=== PATIENT | female | born 1950 | race Caucasian/White ===

== ENCOUNTER 2018-09-18 00:09 | Inpatient (IN) | payer MEDICARE, OTHER ==
[~2018-09-18] VITALS: Ht 152.4 cm; Wt 146.9 kg
[2018-09-18] VITALS (20 sets, daily range): BP systolic 131–158; BP diastolic 59–70; PULSE 62–84; RESP 15–22; Ht 152.4 cm; Wt 146.9 kg
[~2018-09-18 00:09] MED LIST: CEFE1FRO IV
[2018-09-18] MEDS ORDERED: SOD CHLORIDE 0.9% 1,000 ML IV STA (00:21)
[2018-09-18] MEDS ORDERED: ONDANSETRON 4 MG INJ IV PRN ×2 (02:00→06:30)
[2018-09-18] MEDS ORDERED: ACETAMINOPHEN 325 MG TAB PO PRN (02:00)
--- NOTE | 2018-09-18 02:04 | ERD ---
ER Documentation Chief Complaint Chief Complaint VAGINAL BLEEDING HPI This is a 60-year-old who is trach to vent due to COPD who was sent in by residential, who is a patient of Dr. marshall, for vaginal bleeding that started today. Patient is awake alert but did not know she had any vaginal bleeding she has no pain. Reviewing of her old records shows her baseline hemoglobin is 10.9. Denies any vomiting or diarrhea ROS All systems reviewed and are negative except as per history of present illness. Allergies Allergies: Coded Allergies: codeine (Verified Adverse Reaction, Mild, vomiting, 09/18/18) PMhx/Soc History of Surgery: Yes (TRACHEOSTOMY ) Anesthesia Reaction: No Hx Neurological Disorder: No Hx Respiratory Disorders: Yes (COPD ) Hx Cardiac Disorders: Yes (HTN ) Hx Psychiatric Problems: No Hx Miscellaneous Medical Probl: Yes (CKD ) Hx Substance Use: No Hx Tobacco Use: No Smoking Status: Never smoker FmHx Family History: No coronary disease Physical Exam Vitals Vital Signs Date Temp Pulse Resp B/P (MAP) Pulse Ox O2 O2 Flow FiO2 Time Delivery Rate 09/18/18 70 21 100 30 01:34 09/18/18 74 20 100 40 00:16 09/18/18 99.7 77 22 155/64 100 00:15 (94) Physical Exam Const: Well-developed, well-nourished Head: Atraumatic, normocephalic Eyes: Normal Conjunctiva, PERRLA, EOMI, normal sclera, no nystagmus ENT: Normal External Ears, Nose and Mouth, moist mucus membranes. Neck: Full range of motion. No meningismus, no lymphadenopathy, tracheostomy site intact. Resp: Clear to auscultation bilaterally, no wheezing, rhonchi, rales Cardio: Regular rate and rhythm, no murmurs, S1 S2 present Abd: Soft, non tender x 4, non distended. Normal bowel sounds, no guarding or rebound, no pulsitile abdominal masses or bruits, diaper with some dark blood Skin: No petechiae or rashes, no ecchymosis , no maculopapular rash Back: No midline or flank tenderness Ext: No cyanosis, or edema, FROM x 4, normal inspection, neurovascularly intact x 4 Neur: Awake and alert, STR 5/5 x 4, sensation intact x 4, no focal findings, cerebellum intact Psych: Normal Mood and Affect Result Diagram: 09/18/1810209/18/18 0103 Results 24 hrs Laboratory Tests Test 09/18/18 01:03 White Blood Count 6.5 10^3/ul Red Blood Count 3.48 10^6/ul Hemoglobin 10.6 g/dl Hematocrit 33.5 % Mean Corpuscular Volume 96.3 fl Mean Corpuscular Hemoglobin 30.5 pg Mean Corpuscular Hemoglobin Concent 31.6 g/dl Red Cell Distribution Width 17.3 % Platelet Count 261 10^3/UL Mean Platelet Volume 9.3 fl Immature Granulocytes % 1.400 % Neutrophils % 64.3 % Lymphocytes % 18.3 % Monocytes % 12.7 % Eosinophils % 2.4 % Basophils % 0.9 % Nucleated Red Blood Cells % 0.0 /100WBC Immature Granulocytes # 0.090 10^3/ul Neutrophils # 4.2 10^3/ul Lymphocytes # 1.2 10^3/ul Monocytes # 0.8 10^3/ul Eosinophils # 0.2 10^3/ul Basophils # 0.1 10^3/ul Nucleated Red Blood Cells # 0.0 10^3/ul Prothrombin Time 13.8 Sec Prothrombin Time Ratio 1.1 INR International Normalized Ratio 1.05 Activated Partial Thromboplast Time 29.6 Sec Sodium Level 144 mmol/L Potassium Level 3.4 mmol/L Chloride Level 107 mmol/L Carbon Dioxide Level 25 mmol/L Anion Gap 12 Blood Urea Nitrogen 29 mg/dl Creatinine 1.84 mg/dl Est Glomerular Filtrat Rate mL/min 27 mL/min Glucose Level 157 mg/dl Calcium Level 9.5 mg/dl Total Bilirubin 0.3 mg/dl Direct Bilirubin 0.00 mg/dl Indirect Bilirubin 0.3 mg/dl Aspartate Amino Transf (AST/SGOT) 26 IU/L Alanine Aminotransferase (ALT/SGPT) 16 IU/L Alkaline Phosphatase 85 IU/L Total Protein 7.2 g/dl Albumin 3.7 g/dl Globulin 3.50 g/dl Albumin/Globulin Ratio 1.05 Current Medications Medications Dose Sig/Al Start Time Status Last (Trade) Ordered Route PRN Stop Time Admin Dose Reason Admin Sodium 1,000 ml @ Q1H STAT 09/18/18 DC 09/18/18 Chloride 1,000 mls/hr IV 00:21 00:39 09/18/18 01:20 Ondansetron 4 mg ER BRIDGE 09/18/18 HCl (Zofran PRN IV 02:00 Inj) NAUSEA/VOMITI 09/19/18 01:59 NG 650 mg ER BRIDGE 09/18/18 Acetaminophen PRN PO 02:00 (Tylenol .MILD PAIN 09/19/18 01:59 Tab) 1-3 OR TEMP Procedures/MDM Review of the armorer technician sonogram shows limited study due to body habitus but the endometrial stripe does not look thickened. Patient's hemoglobin is 10.6 which is stable. I called and discussed this with Dr. Walker who prefers the patient be admitted for inpatient work-up because outpatient will be difficult due to her trach to vent status Departure Diagnosis: Primary Impression: Vaginal bleeding Condition: Stable ALIDA KEITH DO Sep 18, 2018 02:04
[2018-09-18] MEDS ORDERED: AMLO2.5T78 G-TUBE (04:26)
[2018-09-18] MEDS ORDERED: DIPH12.59 G-TUBE (04:28)
[2018-09-18] MEDS ORDERED: EPO2ESRD SC (04:38)
[2018-09-18] MEDS ORDERED: FURO40SO4 IV* (04:40)
[2018-09-18] MEDS ORDERED: HYDR-3670 IV* (04:42)
[2018-09-18] MEDS ORDERED: METO-448 PO (04:46)
[2018-09-18] MEDS ORDERED: METR500T PO (04:55)
[2018-09-18] MEDS ORDERED: NOVO3I SC (04:56)
[2018-09-18] MEDS ORDERED: ONDA4SOL PO (04:57)
[2018-09-18] MEDS ORDERED: POTA20LI15 PO (04:58)
[2018-09-18] MEDS ORDERED: TRAZ300T15 PO (05:01)
[2018-09-18] MEDS ORDERED: ACET-2158 GTB (05:01)
[2018-09-18] MEDS ORDERED: PENDING SANTYL ORDER FOR WOUND CARE XX PRN (05:30)
[2018-09-18] MEDS ORDERED: ACET250T22 G-TUBE (05:30)
[2018-09-18] MEDS ORDERED: ONDANSETRON (2 MG/2.5 ML PO SYG) PO PRN (06:00)
[2018-09-18] MEDS ORDERED: hydrALAzine 20 MG INJ IV PRN (06:00)
[2018-09-18] MEDS ORDERED: DEXTROSE 50% 50 ML SYRINGE IV PRN ×2 (06:30)
[2018-09-18] MEDS ORDERED: GLUCAGON 1 MG INJ IM PRN (06:30)
[2018-09-18] MEDS ORDERED: GLUCOSE GEL 15 GRAM TUBE PO PRN ×2 (06:30)
[2018-09-18] MEDS ORDERED: GLUCOSE GEL 15 GRAM TUBE BUCCAL PRN (06:30)
[2018-09-18] MEDS: ACCU-CHEK XX SCH ×4 (07:25→20:36)
[2018-09-18] MEDS: INSULIN ASPART [NOVOLOG] 3 ML PEN SC SCH ×4 (07:55→20:35)
[2018-09-18] MEDS ORDERED: EPOETIN 2000 UNITS/1 ML INJ (ESRD) SC SCH (09:00)
[2018-09-18] MEDS: FUROSEMIDE 40 MG/4 ML CUP GTB SCH (09:13)
[2018-09-18] MEDS: ACETAZOLAMIDE 250 MG TAB GTB SCH ×2 (09:13→20:34)
[2018-09-18] MEDS: POTASSIUM CHLORIDE 20 MEQ POWDER FOR ORAL SOLN PO SCH (09:13)
[2018-09-18] MEDS: METOPROLOL 25 MG TAB PO SCH ×2 (09:14→20:35)
[2018-09-18] MEDS: AMLODIPINE 5 MG TAB GTB SCH ×2 (09:14→20:34)
[2018-09-18] MEDS: NYSTATIN 30 GM POWDER BTL TOP SCH ×2 (09:14→20:36)
[2018-09-18] MEDS: metroNIDAZOLE 500 MG TAB GTB SCH ×3 (09:24→21:41)
[2018-09-18] MEDS: CEFEPIME 1GM/50 ML IVPB SCH (09:24)
[2018-09-18] MEDS: POTASSIUM CHLORIDE 100 ML IVPB SCH ×2 (11:01→13:33)
--- NOTE | 2018-09-18 12:37 | QN ---
Documentation Comment PT SEEN and examined GERARDO PAVON MD Sep 18, 2018 12:37
--- NOTE | 2018-09-18 13:29 | CONS ---
Assessment/Plan Assessment/Plan Assessment/Plan (Daily) Morbidly obese patient BMI 64 with postmenopausal bleeding x1 day Please rule out UTI/ recommend urine analysis and urine culture to be done Need to establish the source of the bleeding whether vaginal or from bladder Patient's pelvic ultrasound with an endometrial lining of 8 mm (increased for a postmenopausal patient) Given this patient's comorbid conditions, she is not a surgical candidate for any invasive interventions at this time At this point an endometrial biopsy should be a consideration if the vaginal bleeding persist to rule out endometrial carcinoma The TEXTILE CONVERSION MANAGER service strongly believes that this patient would benefit from transferring to a tertiary care center which they are better equipped to care for this patient given her comorbid conditions. They would have adequate instrumentation for an endometrial biopsy and further management Additionally a TEXTILE CONVERSION MANAGER oncologist will be available at a tertiary care center Consultation Date/Type/Reason Admit Date/Time Sep 18, 2018 at 02:01 Date of Consultation: Sep 18, 2018 Type of Consult Gynecology Reason for Consultation Postmenopausal bleeding Date/Time of Note DATE: 09/18/18 TIME: 13:27 Hx of Present Illness 68-year-old morbidly obese BMI 64 [facility] who has chronic trach to vent due to COPD and G-tube was sent to the hospital for evaluation of vaginal bleeding x1 day It is unclear the source of the bleeding whether it is vaginal or bladder Patient does not seem to be well alert or oriented at this time Genitourinary: other (Vaginal bleeding x1 day) Past Medical History Home Meds Reported Medications Acetazolamide* (Acetazolamide*) 250 Mg Tablet, 250 MG G-TUBE Q12, #60 TAB 09/18/18 Acetaminophen (TYLENOL 325 MG TAB) 325 Mg Tab, 325 MG GTB, TAB 09/18/18 Trazodone Hcl* (Trazodone Hcl*) 300 Mg Tablet, 300 MG PO QHS, #30 TAB 09/18/18 Potassium Chloride* (Potassium Chloride*) 20 Meq/15 Ml Liquid, 20 MEQ PO DAILY, ML 09/18/18 Ondansetron Hcl* (Ondansetron Hcl* Liq) 4 Mg/5 Ml Solution, 4 MG PO Q6H PRN for NAUSEA AND/OR VOMITING, ML 09/18/18 Insulin Aspart* (Novolog Insulin Pen*) 100 Unit/Ml Soln, 0 SC .SLIDING SCALE AC, EA 09/18/18 Metronidazole* (Flagyl*) 500 Mg Tablet, 500 MG PO Q8, TAB 09/18/18 Metoprolol Tartrate* (Lopressor*) 25 Mg Tab, 25 MG PO BID, #60 TAB Hold for SBP <110 or HR <60 09/18/18 Hydralazine Hcl* (Hydralazine Hcl*) 10 Mg Tablet, 10 MG IV* Q6H PRN for SBP > 170, #60 TAB 09/18/18 Furosemide* (Lasix* Liq) 40 Mg/4 Ml Solution, 10 MG IV* DAILY, #60 ML 09/18/18 Epoetin Jasmeet (Epogen) 2,000 Units/Ml Soln, 7.15 UNITS SC DAILY for Anemia, VIAL Tuesdays, , Saturdays09/18/18 Cefepime Hcl/Dextrose, Iso-Osm (Cefepime 1 Gm Injection) 1 Gm/50 Ml Froz.piggy, 1 GM IV Q24H for for UTI 09/18/18 Diphenhydramine Hcl* (Diphenhydramine Hcl*) 12.5 Mg/5 Ml Elixir, 25 MG G-TUBE Q8 PRN for ITCHING, ML 09/18/18 Amlodipine Besylate* (Amlodipine Besylate*) 2.5 Mg Tablet, 5 MG G-TUBE Q12, #30 TAB 09/18/18 Medications Current Medications Miscellaneous Information (Pending Santyl Order For Wound Care) This patient garcia... PRN PRN XX WOUND CARE; Start 09/18/18 at 05:30 Acetaminophen (Tylenol Tab) 325 mg Q6 PRN GTB MILD PAIN(1-3) OR TEMP>38C; Start 09/18/18 at 06:00 Acetazolamide (Diamox) 250 mg Q12 GTB Last administered on 09/18/18at 09:13; Admin Dose 250 MG; Start 09/18/18 at 09:00 Amlodipine Besylate (Norvasc) 5 mg Q12 GTB Last administered on 09/18/18at 09:14; Admin Dose 5 MG; Start 09/18/18 at 09:00 Diphenhydramine HCl (Benadryl Liquid Cup) 25 mg Q8 PRN GTB ITCHING; Start 09/18/18 at 06:00 Epoetin Jasmeet (Epogen (Esrd)) 7.15 units DAILY SC ; Start 09/18/18 at 09:00; S tomeka UNV Furosemide (Lasix) 10 mg DAILY GTB Last administered on 09/18/18at 09:13; Admin Dose 10 MG; Start 09/18/18 at 09:00 Metoprolol Tartrate (Lopressor) 25 mg BID PO Last administered on 09/18/18at 09:14; Admin Dose 25 MG; Start 09/18/18 at 09:00 Metronidazole (Flagyl) 500 mg Q8 GTB Last administered on 09/18/18at 09:24; Admin Dose 500 MG; Start 09/18/18 at 09:00 Potassium Chloride (Potassium Chloride Pwd/Soln) 20 meq DAILY PO Last administered on 09/18/18 09:13; Admin Dose 20 MEQ; Start 09/18/18 at 09:00 Trazodone HCl (Desyrel) 300 mg QHS PO ; Start 09/18/18 at 21:00 Insulin Aspart (Novolog Insulin Pen) NOVOLOG *MILD* ALGORITHM WITH MEALS BEDTIME SC Last administered on 09/18/18at 12:02; Admin Dose 1 UNIT; Start 09/18/18 at 07:55 Diagnostic Test (Pha) (Accu-Chek) 1 ea AC MEALS AND BEDTIME XX ; Start 09/18/18 at 07:25 Hydralazine HCl (Apresoline) 10 mg Q6H PRN IV SBP >170; Start 09/18/18 at 06:00 Hydralazine HCl (Apresoline) 100 mg Q8 GTB Last administered on 09/18/18at 06:47 ; Admin Dose 100 MG; Start 09/18/18 at 06:00 Nystatin (Nystatin Powder) 1 applic BID TOP Last administered on 09/18/18at 09:14; Admin Dose 1 APPLIC; Start 09/18/18 at 09:00 Miscellaneous Information 1 ea NOTE XX ; Start 09/18/18 at 06:30 Glucose (Glutose) 15 gm Q15M PRN PO DECREASED GLUCOSE; Start 09/18/18 at 06:30 Glucose (Glutose) 22.5 gm Q15M PRN PO DECREASED GLUCOSE; Start 09/18/18 at 06:30 Dextrose (D50w Syringe) 25 ml Q15M PRN IV DECREASED GLUCOSE; Start 09/18/18 at 06:30 Dextrose (D50w Syringe) 50 ml Q15M PRN IV DECREASED GLUCOSE; Start 09/18/18 at 06:30 Glucagon (Glucagen) 1 mg Q15M PRN IM DECREASED GLUCOSE; Start 09/18/18 at 06:30 Glucose (Glutose) 15 gm Q15M PRN BUCCAL DECREASED GLUCOSE; Start 09/18/18 at 06:30 Ondansetron HCl (Zofran Inj) 4 mg Q6H PRN IV NAUSEA AND/OR VOMITING; Start 09/18/18 at 06:30 Cefepime HCl 50 ml @ 100 mls/hr Q24H IVPB Last administered on 09/18/18at 09:24; Admin Dose 100 MLS/HR; Start 09/18/18 at 09:00 Miscellaneous Information (*Order Clarification Bulletin) EPOGEN ORDER...7.15 UNITS... Q8H XX ; Start 09/18/18 at 07:00 Potassium Chloride 100 ml @ 50 mls/hr Q2H IVPB Last administered on 09/18/18at 11:01; Admin Dose 50 MLS/HR; Start 09/18/18 at 10:30; Stop 09/18/18 at 14:29 Allergies: Coded Allergies: codeine (Verified Adverse Reaction, Mild, vomiting, 09/18/18) Social History Smoking Status: Never smoker Exam/Review of Systems Exam Vitals Vital Signs Date Temp Pulse Resp B/P (MAP) Pulse Ox O2 O2 Flow FiO2 Time Delivery Rate 09/18/18 71 08:41 09/18/18 97.5 18 158/59 98 Mechanical 07:47 (92) Ventilator 09/18/18 30 05:23 Results Result Diagram: 09/18/18 0601 09/18/18 0601 Results 24hrs Laboratory Tests Test 09/18/18 01:00 09/18/18 01:03 09/18/18 06:01 09/18/18 08:00 Blood Gas Blood arterial Specimen Source Arterial Blood 09/18/2018 1:20:1 Date Drawn 5 AM Arterial Blood pH 7.373 (Temp corrected) Arterial Blood 44.4 pCO2 (Temp correct) Arterial Blood 137.9 H pO2 (Temp corrected) Arterial Blood 25.3 HCO3 Arterial Blood -0.2 Base Excess Arterial Blood 98.6 H Oxygen Saturation Sukhdev Test ACCEPTAB Arterial Blood Left Radial Gas Puncture Site Arterial 0.3 Blood Carboxyhemo globin Arterial Blood 0.3 Methemoglobin Blood Gas A-a O2 96.2 H Differential Oxyhemoglobin 98.0 Percent Blood Gas 37.0 Temperature Blood Gas 14.0 Respiration Rate Blood Gas Actual 21 Respiration Rate Blood Gas VENT - AC Modality FiO2 40.0 Blood Gas Tidal 500.0 Volume Blood Gas Low 5.0 PEEP Setting Blood Gas 34.0 Inspiratory Pressure Blood Gas Notified Whom Blood Gas 09/18/2018 1:30:0 Notified Time 2 AM White Blood Count 6.5 6.4 Red Blood Count 3.48 L 3.42 L Hemoglobin 10.6 L 10.4 L Hematocrit 33.5 L 32.9 L Mean Corpuscular 96.3 96.2 Volume Mean Corpuscular 30.5 30.4 Hemoglobin Mean Corpuscular 31.6 L 31.6 L Hemoglobin Concen t Red Cell 17.3 H 17.2 H Distribution Width Platelet Count 261 256 Mean Platelet 9.3 9.7 Volume Immature 1.400 H 1.900 H Granulocytes % Neutrophils % 64.3 60.4 Lymphocytes % 18.3 21.9 Monocytes % 12.7 H 12.9 H Eosinophils % 2.4 2.0 Basophils % 0.9 0.9 Nucleated Red 0.0 0.0 Blood Cells % Immature 0.090 H 0.120 H Granulocytes # Neutrophils # 4.2 3.9 Lymphocytes # 1.2 1.4 Monocytes # 0.8 0.8 Eosinophils # 0.2 0.1 Basophils # 0.1 0.1 Nucleated Red 0.0 0.0 Blood Cells # Prothrombin Time 13.8 Prothrombin Time 1.1 Ratio INR International 1.05 Normalized Ratio Activated 29.6 Partial Thrombopl ast Time Sodium Level 144 143 Potassium Level 3.4 L 3.4 L Chloride Level 107 110 Carbon Dioxide 25 25 Level Anion Gap 12 8 Blood Urea 29 H 29 H Nitrogen Creatinine 1.84 H 1.80 H Est Glomerular 27 L 28 L Filtrat Rate mL/min Glucose Level 157 141 Calcium Level 9.5 9.2 Total Bilirubin 0.3 0.2 Direct Bilirubin 0.00 0.00 Indirect 0.3 0.2 Bilirubin Aspartate Amino 26 27 Transf (AST/SGOT) Alanine 16 16 Aminotransferase (ALT/SGPT) Alkaline 85 81 Phosphatase Total Protein 7.2 7.1 Albumin 3.7 3.4 Globulin 3.50 H 3.70 H Albumin/Globulin 1.05 0.91 Ratio Bedside Glucose 127 Test 09/18/18 11:43 Bedside Glucose 165 Imaging Imaging PROCEDURE: US Non-OB Pelvis. CLINICAL INDICATION: Vaginal bleeding. TECHNIQUE: Multiple sonographic images of the pelvis were obtained utilizing a transabdominal and endovaginal technique. The images were reviewed on a PACS workstation. COMPARISON: None. FINDINGS: The uterus is not well visualized but measures 10.7 x 5.7 x 7.4 cm. The endometrial echo complex measures 8 mm. The ovaries are not visualized. No adnexal masses are noted. There is no evidence of free fluid. IMPRESSION: Grossly normal appearance of the uterus. The ovaries are not visualized. RPTAT: HTAR .Cipriano Stone MD, MD Date Time Electronically viewed and signed by .Cipriano Stone MD, on 09/18/2018 02:58 .R/ CC: ALIDA KEITH DO [id number] Medications Medication Current Medications Miscellaneous Information (Pending [facility] Order For Wound Care) This patient garcia... PRN PRN XX WOUND CARE; Start 09/18/18 at 05:30 Acetaminophen (Tylenol Tab) 325 mg Q6 PRN GTB MILD PAIN(1-3) OR TEMP>38C; Start 09/18/18 at 06:00 Acetazolamide (Diamox) 250 mg Q12 GTB Last administered on 09/18/18at 09:13; Admin Dose 250 MG; Start 09/18/18 at 09:00 Amlodipine Besylate (Norvasc) 5 mg Q12 GTB Last administered on 09/18/18at 09:14; Admin Dose 5 MG; Start 09/18/18 at 09:00 Diphenhydramine HCl (Benadryl Liquid Cup) 25 mg Q8 PRN GTB ITCHING; Start 09/18/18 at 06:00 Epoetin Jasmeet (Epogen (Esrd)) 7.15 units DAILY SC ; Start 09/18/18 at 09:00; Status UNV Furosemide (Lasix) 10 mg DAILY GTB Last administered on 09/18/18at 09:13; Admin Dose 10 MG; Start 09/18/18 at 09:00 Metoprolol Tartrate (Lopressor) 25 mg BID PO Last administered on 09/18/18at 09:14; Admin Dose 25 MG; Start 09/18/18 at 09:00 Metronidazole (Flagyl) 500 mg Q8 GTB Last administered on 09/18/18at 09:24; Admin Dose 500 MG; Start 09/18/18 at 09:00 Potassium Chloride (Potassium Chloride Pwd/Soln) 20 meq DAILY PO Last administered on 09/18/18at 09:13; Admin Dose 20 MEQ; Start 09/18/18 at 09:00 Trazodone HCl (Desyrel) 300 mg QHS PO ; Start 09/18/18 at 21:00 Insulin Aspart (Novolog Insulin Pen) NOVOLOG *MILD* ALGORITHM WITH MEALS BEDTIME SC Last administered on 09/18/18at 12:02; Admin Dose 1 UNIT; Start 09/18/18 at 07:55 Diagnostic Test (Pha) (Accu-Chek) 1 ea AC MEALS AND BEDTIME XX ; Start 09/18/18 at 07:25 Hydralazine HCl (Apresoline) 10 mg Q6H PRN IV SBP >170; Start 09/18/18 at 06:00 Hydralazine HCl (Apresoline) 100 mg Q8 GTB Last administered on 09/18/18at 06:47; Admin Dose 100 MG; Start 09/18/18 at 06:00 Nystatin (Nystatin Powder) 1 applic BID TOP Last administered on 09/18/18at 0 9:14; Admin Dose 1 APPLIC; Start 09/18/18 at 09:00 Miscellaneous Information 1 ea NOTE XX ; Start 09/18/18 at 06:30 Glucose (Glutose) 15 gm Q15M PRN PO DECREASED GLUCOSE; Start 09/18/18 at 06:30 Glucose (Glutose) 22.5 gm Q15M PRN PO DECREASED GLUCOSE; Start 09/18/18 at 06:30 Dextrose (D50w Syringe) 25 ml Q15M PRN IV DECREASED GLUCOSE; Start 09/18/18 at 06:30 Dextrose (D50w Syringe) 50 ml Q15M PRN IV DECREASED GLUCOSE; Start 09/18/18 at 06:30 Glucagon (Glucagen) 1 mg Q15M PRN IM DECREASED GLUCOSE; Start 09/18/18 at 06:30 Glucose (Glutose) 15 gm Q15M PRN BUCCAL DECREASED GLUCOSE; Start 09/18/18 at 06:30 Ondansetron HCl (Zofran Inj) 4 mg Q6H PRN IV NAUSEA AND/OR VOMITING; Start 09/18/18 at 06:30 Cefepime HCl 50 ml @ 100 mls/hr Q24H IVPB Last administered on 09/18/18at 09:24; Admin Dose 100 MLS/HR; Start 09/18/18 at 09:00 Miscellaneous Information (*Order Clarification Bulletin) EPOGEN ORDER...7.15 UNITS... Q8H XX ; Start 09/18/18 at 07:00 Potassium Chloride 100 ml @ 50 mls/hr Q2H IVPB Last administered on 09/18/18at 11:01; Admin Dose 50 MLS/HR; Start 09/18/18 at 10:30; Stop 09/18/18 at 14:29 DAKSHA COLUNGA MD Sep 18, 2018 13:29
--- NOTE | 2018-09-18 13:59 | HP ---
DATE OF ADMISSION: 09/18/2018 REASON FOR ADMISSION: Vaginal bleeding. HISTORY OF PRESENTING ILLNESS: This is a 68-year-old female with past medical history of chronic res piratory failure on a ventilator, history of aspiration pneumonia, COPD, morbid obesity, history of U TI, hypertension, who was admitted at [facility] secondary to ongoing vaginal bleeding. patient was there on . The patient was transferred there. She was thought to have bleeding s econdary to postmenopausal. She had pelvic ultrasound that showed the patient had fibroids. There w as no PREFITTER DOORS service at [facility] and outside PREFITTER DOORS was contacted. After discussion with the case checker, the patient was supposed to go to [facility] , but did not work out. Referral was mad e to transfer to [facility] or [place]. They did not have a bed. Family did not want the tammy ent to come back to [place]. The patient somehow made in [facility]. The patient was noted to have vaginal bleeding and was transferred here for further workup. PAST MEDICAL HISTORY: 1. Chronic respiratory failure, status post tracheostomy. 2. Dysphagia, status post PEG tube. 3. COPD. 4. Morbid obesity. 5. Diabetes. 6. Functional quadriplegia. ALLERGIES: CODEINE. PAST SURGICAL HISTORY: 1. Tracheostomy. 2. G-tube placement. MEDICATIONS TAKING AT [facility]: 1. Amlodipine 5 mg q.12 hours. 2. Benadryl p.r.n. 3. Cefepime for UTI. 4. Epogen Tuesday, and Tuesday. 5. Fluconazole 100. 6. Lasix 20. 7. Hydralazine 10 q.6 p.r.n. systolic blood pressure of 170. 8. Hydralazine 100 q.8 hours. 9. Metoprolol 25 b.i.d. 10. Flagyl q.8 hours for UTI. 11. Zofran. 12. Potassium chloride. 13. Trazodone. 14. Tylenol. FAMILY HISTORY: Noncontributory. REVIEW OF SYSTEMS: The patient says she always short of breath. Currently, denies any chest pain. No nausea, vomiting noted. No hematemesis, no melena; however the patient has vaginal bleeding. PHYSICAL EXAMINATION: VITAL SIGNS: Temperature initially was 99.7, heart rate of 69, respirations 18, blood pressure 155/6 4. GENERAL: The patient is morbidly obese, awake, alert, oriented, able to answer some questions on a v entilator. HEENT: Atraumatic, normocephalic. Eyes: Extraocular movements are intact. NECK: Thick neck. JVD could not be appreciated. LUNGS: With decreased breath sounds bilaterally. ABDOMEN: Soft, nontender. No bowel sounds. EXTREMITIES: A 2+ edema. The patient is able to move all the extremities. SKIN: The patient also has a G-tube in place. Right forearm has superficial ulcer. Back with macul opapular rash. Also noted to have sacral area with some pressure ulcer stage II. The patient's bila teral heels are also red in appearance. LABORATORY DATA: Potassium 3.4, BUN of 29, creatinine 1.84. White count of 6.5, hemoglobin 10.6, pl atelet count 261. ASSESSMENT AND PLAN: This is a 68-year-old female who presented with: 1. The patient has been admitted multiple times for persistent vaginal bleeding. The patient was th ought to have fibroids at an outside hospital. There was no PREFITTER DOORS service. The patient was on progeste rodrick for a little bit. Hemoglobin is 10.4. Currently, no vaginal bleeding appreciated. 2. Right forearm ulcer. 3. Mild low-grade fever. 4. Persistent hypokalemia. 5. History of multiple urinary tract infections on antibiotics. 6. Chronic respiratory failure, status post tracheostomy. 7. Dysphagia, status post G-tube. 8. Hypertension. 9. Morbid obesity. 10. History of chronic kidney disease. PLAN: At this period of time, the patient is admitted to [facility]. The patient's hemoglobin will be mon itored serially. Pelvic ultrasound here shows that uterus is not well visualized. We will hold off any blood thinners. The patient is currently on Epogen. We will replace the potassium. We will andrew l her PREFITTER DOORS consultation. The patient is continued on antibiotics from the [facility]. Rest of the treatment will depend of the patient's hospitalization course. Dictated By: GERARDO TELLO/REJI Conf#: [id number] DID#: [id number] CC: ADAM CARDENAS MD; MICKEY LYONS MD;*EndCC*
--- NOTE | 2018-09-18 15:00 | CONS ---
DATE OF ADMISSION: 09/18/2018 DATE OF CONSULTATION: 09/18/2018 TYPE OF CONSULTATION: Infectious disease. REASON FOR CONSULTATION: Antibiotic management. HISTORY OF PRESENT ILLNESS: Elza Torres is a 68-year-old female who comes to the emergency room wit h vaginal bleeding. She has ventilator dependent respiratory failure, trach to vent due to COPD. He r vaginal bleeding started today. She has no pain. Her baseline hemoglobin is 10.9. PAST SURGICAL HISTORY: Status post tracheostomy. PAST MEDICAL HISTORY: Includes COPD, hypertension and chronic renal disease. SOCIAL HISTORY: She does not smoke, drink or abuse drugs. ALLERGIES: CODEINE. MEDICATIONS: Per chart. REVIEW OF SYSTEMS: Noncontributory. PHYSICAL EXAMINATION: GENERAL: She is a well-developed, well-nourished female who is alert, responsive, in no acute distre ss. VITAL SIGNS: Stable. She is afebrile. SKIN: Without generalized rash. HEENT: Tracheostomy in site intact. NECK: Supple. CHEST: Decreased breath sounds at the bases. HEART: Without murmur or gallop. ABDOMEN: Soft, nontender without organosplenomegaly or masses. EXTREMITIES: Without cyanosis, clubbing or edema. RECTAL AND GENITAL: Deferred. She has with some dark blood. NEUROLOGICAL: No focal neurological abnormalities. HOSPITAL COURSE: Her white count is 6.5, H and H 10.6 and 33.5, platelet count 261,000. Potassium 3 .4, BUN and creatinine is 29/1.84. Her white count is 6.5, has 64% neutrophils. Sonogram shows that the endometrial stripe does not look thickened. The patient was admitted and was seen by Dr. Codey perez. The patient is morbidly obese with a BMI of 64 with postmenopausal bleeding of 1 day. Rule out U TI. I recommend urinalysis and urine culture be done. Need to establish the source of bleeding whet her vaginal or from bladder. Ultrasound is within normal limits endometrial lining of 8 mm increased for postmenopausal patient and endometrial biopsy may be considered by the prototype engineer manager as outpatien t care if the vaginal bleeding persists to rule out endometrial carcinoma. The patient also has G-tu be which I did mentioned previously. She is functionally quadriplegic. We will continue her on this regimen. She currently was placed on Flagyl and cefepime and I am not exactly sure why. I will dis cuss this with Dr. Diaz. Urinalysis is pending. There is no evidence of infection. We will stop her antibiotic therapy. I will dictate my findings to Dr. Diaz and Dr. Cardenas. Dictated By: MICKEY LYONS MD, JD/NTS Conf#: [id number] DID#: [id number] CC: ADAM CARDENAS MD;*End*
[2018-09-18] MEDS: DIPHENHYDRAMINE 2.5 MG/ML 5ML CUP GTB PRN (19:51)
[2018-09-18] MEDS: ACETAMINOPHEN 325 MG TAB GTB PRN (19:52)
[2018-09-18] MEDS: traZODone 100 MG TAB PO SCH (20:33)
[2018-09-19] VITALS (23 sets, daily range): BP systolic 95–137; BP diastolic 50–63; PULSE 61–114; RESP 18–23
[2018-09-19] MEDS: metroNIDAZOLE 500 MG TAB GTB SCH ×2 (05:29→14:13)
[2018-09-19] MEDS: DIPHENHYDRAMINE 2.5 MG/ML 5ML CUP GTB PRN ×2 (05:29→20:28)
[2018-09-19] MEDS: ACETAMINOPHEN 325 MG TAB GTB PRN ×2 (05:30→20:30)
[2018-09-19] MEDS: ACCU-CHEK XX SCH ×4 (07:25→21:00)
[2018-09-19] MEDS: INSULIN ASPART [NOVOLOG] 3 ML PEN SC SCH ×4 (08:04→21:00)
[2018-09-19] MEDS: BALSAM PERU/CASTOR OIL 60 GM TUBE TOP SCH (09:01)
[2018-09-19] MEDS: FUROSEMIDE 40 MG/4 ML CUP GTB SCH (09:01)
[2018-09-19] MEDS: NYSTATIN 30 GM POWDER BTL TOP SCH ×2 (09:01→20:30)
[2018-09-19] MEDS: METOPROLOL 25 MG TAB PO SCH ×2 (09:02→20:30)
[2018-09-19] MEDS: ACETAZOLAMIDE 250 MG TAB GTB SCH ×2 (09:02→20:29)
[2018-09-19] MEDS: AMLODIPINE 5 MG TAB GTB SCH ×2 (09:02→20:30)
[2018-09-19] MEDS: POTASSIUM CHLORIDE 20 MEQ POWDER FOR ORAL SOLN PO SCH (09:02)
[2018-09-19] MEDS: CEFEPIME 1GM/50 ML IVPB SCH (10:12)
[2018-09-19] MEDS ORDERED: POTASSIUM CHLORIDE 100 ML IVPB SCH (10:30)
[2018-09-19] MEDS ORDERED: POTASSIUM CHLORIDE (SR) 20 MEQ TAB PO STA ×2 (11:27→12:11)
--- NOTE | 2018-09-19 11:38 | PN ---
Date/Time of Note Date/Time of Note DATE: 09/19/18 TIME: 11:34 Assessment/Plan VTE Prophylaxis Risk score (from Ns)>0 risk: 6 SCD applied (from Ns): No SCD contraindicated: low risk/ambulating Pharmacological prophylaxis: NA/contraindicated Pharm contraindication: low risk/ambulating Lines/Catheters IV C[facility]ter Type [facility]from [facility] [place] Urinary Cath still in place: No (NO BLEEDING NOTED) Assessment/Plan Assessment/Plan ASSESSMENT AND PLAN: This is a 68-year-old female who presented with: 1. The patient has been admitted multiple times for persistent vaginal bleeding. The patient was thought to have fibroids at an outside hospital. There was no AIRPORT SALES AGENT service. The patient was on progesterone for a little bit. Hemoglobin is 10.4. Currently, no vaginal bleeding appreciated. 2. Right forearm ulcer. 3. Mild low-grade fever. 4. Persistent hypokalemia. 5. History of multiple urinary tract infections on antibiotics. 6. Chronic respiratory failure, status post tracheostomy. 7. Dysphagia, status post G-tube. 8. Hypertension. 9. Morbid obesity. 10. History of chronic kidney disease. plan - will obtain UA to see if has UTI verus bleeding from pelvic source - seen [facility] consult> thickened endometral lining, will need likely endometrial biopsy at [facility] - iv abx per ID - CW Feeding - replete k - GI/DVT prophylaxsis - cw vent management spoke to brother Result Diagram: 09/19/18 0632 09/19/18 0632 Results 24hrs Laboratory Tests Test 09/18/18 11:43 09/18/18 17:58 09/18/18 20:10 09/19/18 06:32 Bedside Glucose 165 159 135 White Blood Count 7.5 Red Blood Count 3.49 L Hemoglobin 10.5 L Hematocrit 33.1 L Mean Corpuscular 94.8 Volume Mean Corpuscular 30.1 Hemoglobin Mean Corpuscular 31.7 L Hemoglobin Concent Red Cell 17.2 H Distribution Width Platelet Count 256 Mean Platelet Volume 9.8 Immature 1.600 H Granulocytes % Neutrophils % 57.6 Lymphocytes % 25.3 Monocytes % 11.8 H Eosinophils % 2.4 Basophils % 1.3 Nucleated Red Blood 0.0 Cells % Immature 0.120 H Granulocytes # Neutrophils # 4.3 Lymphocytes # 1.9 Monocytes # 0.9 Eosinophils # 0.2 Basophils # 0.1 Nucleated Red Blood 0.0 Cells # Sodium Level 141 Potassium Level 3.3 L Chloride Level 111 H Carbon Dioxide Level 21 Anion Gap 9 Blood Urea Nitrogen 29 H Creatinine 1.72 H Est Glomerular 29 L Filtrat Rate mL/min Glucose Level 162 Calcium Level 8.7 Phosphorus Level 2.8 Magnesium Level 2.1 Test 09/19/18 07:58 Bedside Glucose 187 Subjective 24 Hr Interval Summary Free Text/Dictation No vaginal bleeding noted per nursing staff k 3.3 pt was seen by Gynae and ID Exam/Review of Systems Exam Vitals Vital Signs Date Temp Pulse Resp B/P (MAP) Pulse Ox O2 O2 Flow FiO2 Time Delivery Rate 09/19/18 76 08:01 09/19/18 98.4 19 131/59 99 07:45 (83) 09/19/18 30 05:16 09/18/18 Mechanical 15:44 Ventilator Intake and Output 09/18/18 09/18/18 09/19/18 1515:00 23:00 07:00 IntakeIntake Total 150 ml 100 ml OutputOutput Total 1 ml 2 ml BalanceBalance 149 ml 98 ml Exam ENERAL: The patient is morbidly obese, awake, alert, oriented, able to answer some questions on a ventilator. HEENT: Atraumatic, normocephalic. Eyes: Extraocular movements are intact. NECK: Thick neck. JVD could not be appreciated. LUNGS: With decreased breath sounds bilaterally. ABDOMEN: Soft, nontender. No bowel sounds. EXTREMITIES: A 2+ edema. The patient is able to move all the extremities. SKIN: The patient also has a G-tube in place. Right forearm has superficial ulcer. Back with maculopapular rash. Also noted to have sacral area with some pressure ulcer stage II. The patient's bilateral heels are also red in appearance. Results Results 24hrs Laboratory Tests Test 09/18/18 11:43 09/18/18 17:58 09/18/18 20:10 09/19/18 06:32 Bedside Glucose 165 159 135 White Blood Count 7.5 Red Blood Count 3.49 L Hemoglobin 10.5 L Hematocrit 33.1 L Mean Corpuscular 94.8 Volume Mean Corpuscular 30.1 Hemoglobin Mean Corpuscular 31.7 L Hemoglobin Concent Red Cell 17.2 H Distribution Width Platelet Count 256 Mean Platelet Volume 9.8 Immature 1.600 H Granulocytes % Neutrophils % 57.6 Lymphocytes % 25.3 Monocytes % 11.8 H Eosinophils % 2.4 Basophils % 1.3 Nucleated Red Blood 0.0 Cells % Immature 0.120 H Granulocytes # Neutrophils # 4.3 Lymphocytes # 1.9 Monocytes # 0.9 Eosinophils # 0.2 Basophils # 0.1 Nucleated Red Blood 0.0 Cells # Sodium Level 141 Potassium Level 3.3 L Chloride Level 111 H Carbon Dioxide Level 21 Anion Gap 9 Blood Urea Nitrogen 29 H Creatinine 1.72 H Est Glomerular 29 L Filtrat Rate mL/min Glucose Level 162 Calcium Level 8.7 Phosphorus Level 2.8 Magnesium Level 2.1 Test 09/19/18 07:58 Bedside Glucose 187 Medications Medication Current Medications Miscellaneous Information (Pending [facility] Order For Wound Care) This patient garcia... PRN PRN XX WOUND CARE; Start 09/18/18 at 05:30 Acetaminophen (Tylenol Tab) 325 mg Q6 PRN GTB MILD PAIN(1-3) OR TEMP>38C Last administered on 09/19/18 05:30; Admin Dose 325 MG; Start 09/18/18 at 06:00 Acetazolamide (Diamox) 250 mg Q12 GTB Last administered on 09/19/18 09:02; Admin Dose 250 MG; Start 09/18/18 at 09:00 Amlodipine Besylate (Norvasc) 5 mg Q12 GTB Last administered on 09/19/18 09:02; Admin Dose 5 MG; Start 09/18/18 at 09:00 Diphenhydramine HCl (Benadryl Liquid Cup) 25 mg Q8 PRN GTB ITCHING Last admini stered on 09/19/18 05:29; Admin Dose 25 MG; Start 09/18/18 at 06:00 Epoetin Jasmeet (Epogen (Esrd)) 7.15 units DAILY SC ; Start 09/18/18 at 09:00; Status UNV Furosemide (Lasix) 10 mg DAILY GTB Last administered on 09/19/18 09:01; Admin Dose 10 MG; Start 09/18/18 at 09:00 Metoprolol Tartrate (Lopressor) 25 mg BID PO Last administered on 09/19/18 09:02; Admin Dose 25 MG; Start 09/18/18 at 09:00 Metronidazole (Flagyl) 500 mg Q8 GTB Last administered on 09/19/18at 05:29; Admin Dose 500 MG; Start 09/18/18 at 09:00 Potassium Chloride (Potassium Chloride Pwd/Soln) 20 meq DAILY PO Last administered on 09/19/18at 09:02; Admin Dose 20 MEQ; Start 09/18/18 at 09:00 Trazodone HCl (Desyrel) 300 mg QHS PO Last administered on 09/18/18at 20:33; Admin Dose 300 MG; Start 09/18/18 at 21:00 Insulin Aspart (Novolog Insulin Pen) NOVOLOG *MILD* ALGORITHM WITH MEALS BEDTIME SC Last administered on 09/19/18at 08:04; Admin Dose 2 UNIT; Start 09/18/18 at 07:55 Diagnostic Test (Pha) (Accu-Chek) 1 ea AC MEALS AND BEDTIME XX ; Start 09/18/18 at 07:25 Hydralazine HCl (Apresoline) 10 mg Q6H PRN IV SBP >170; Start 09/18/18 at 06:00 Hydralazine HCl (Apresoline) 100 mg Q8 GTB Last administered on 09/19/18at 05 :30; Admin Dose 100 MG; Start 09/18/18 at 06:00 Nystatin (Nystatin Powder) 1 applic BID TOP Last administered on 09/19/18at 09:01; Admin Dose 1 APPLIC; Start 09/18/18 at 09:00 Miscellaneous Information 1 ea NOTE XX ; Start 09/18/18 at 06:30 Glucose (Glutose) 15 gm Q15M PRN PO DECREASED GLUCOSE; Start 09/18/18 at 06:30 Glucose (Glutose) 22.5 gm Q15M PRN PO DECREASED GLUCOSE; Start 09/18/18 at 06: 30 Dextrose (D50w Syringe) 25 ml Q15M PRN IV DECREASED GLUCOSE; Start 09/18/18 at 06:30 Dextrose (D50w Syringe) 50 ml Q15M PRN IV DECREASED GLUCOSE; Start 09/18/18 at 06:30 Glucagon (Glucagen) 1 mg Q15M PRN IM DECREASED GLUCOSE; Start 09/18/18 at 06:30 Glucose (Glutose) 15 gm Q15M PRN BUCCAL DECREASED GLUCOSE; Start 09/18/18 at 06:30 Ondansetron HCl (Zofran Inj) 4 mg Q6H PRN IV NAUSEA AND/OR VOMITING; Start 09/18/18 at 06:30 Cefepime HCl 50 ml @ 100 mls/hr Q24H IVPB Last administered on 09/19/18at 10:12; Admin Dose 100 MLS/HR; Start 09/18/18 at 09:00 Miscellaneous Information (*Order Clarification Bulletin) EPOGEN ORDER...7.15 UNITS... Q8H XX ; Start 09/18/18 at 07:00 Potassium Chloride 100 ml @ 50 mls/hr Q2H IVPB Last administered on 09/19/18at 10:55; Admin Dose 50 MLS/HR; Start 09/19/18 at 10:30; Stop 09/19/18 at 14:29 Potassium Chloride (Klor-Con 20) 40 meq ONCE STAT PO ; Start 09/19/18 at 11:27; Stop 09/19/18 at 11:28; Status UNV GERARDO PAVON MD Sep 19, 2018 11:38
[2018-09-19] MEDS ORDERED: POTASSIUM CHLORIDE 20 MEQ POWDER FOR ORAL SOLN GTB ONE (12:30)
--- NOTE | 2018-09-19 14:42 | CONS ---
Assessment/Plan Assessment/Plan Hospital Course (Demo Recall) Patient is alert in no distress no fever overnight no vaginal bleeding WBC 7.5 platelets 256 no shift no bands urinalysis was positive for trace leukocyte Estrace. BUN 29 creatinine 1.72 Indwelling's: Tracheostomy, PEG Antimicrobials: Cefepime and Flagyl Physical examination: This is a morbidly obese well-developed elderly woman who is awake in no distress. Head atraumatic normocephalic sclera nonicteric vehicle mucosa dry neck is supple tracheostomy present chest rise symmetrical breath sounds diminished bases heart: S1-S2 abdomen obese soft bowel sounds present extremities with trace edema Assessment: 1. Status post vaginal bleeding 2. Chronic respiratory failure 3. Dysphasia 4. Morbid obesity 5. Hypertension Plan: Patient remains stable, there is no evidence of active infectious process, will discontinue antibiotics and observe, follow gynecology recommendations. Donnell hassan will require transferring to tertiary care facility for endometrial biopsy if bleeding persists Consultation Date/Type/Reason Admit Date/Time Sep 18, 2018 at 02:01 Initial Consult Date 09/18/18 Type of Consult id Date/Time of Note DATE: 09/19/18 TIME: 14:41 Exam/Review of Systems Exam Vitals Vital Signs Date Temp Pulse Resp B/P (MAP) Pulse Ox O2 O2 Flow FiO2 Time Delivery Rate 09/19/18 98.7 63 20 110/51 100 11:52 (70) 09/19/18 30 05:16 09/18/18 Mechanical 15:44 Ventilator Intake and Output 09/18/18 09/18/18 09/19/18 1515:00 23:00 07:00 IntakeIntake Total 150 ml 100 ml OutputOutput Total 1 ml 2 ml BalanceBalance 149 ml 98 ml Results Result Diagram: 09/19/18 0632 09/19/18 0632 Results 24hrs Laboratory Tests Test 09/18/18 17:58 09/18/18 20:10 09/19/18 06:32 09/19/18 07:58 Bedside Glucose 159 135 187 White Blood Count 7.5 Red Blood Count 3.49 L Hemoglobin 10.5 L Hematocrit 33.1 L Mean Corpuscular 94.8 Volume Mean Corpuscular 30.1 Hemoglobin Mean Corpuscular 31.7 L Hemoglobin Concent Red Cell 17.2 H Distribution Width Platelet Count 256 Mean Platelet Volume 9.8 Immature 1.600 H Granulocytes % Neutrophils % 57.6 Lymphocytes % 25.3 Monocytes % 11.8 H Eosinophils % 2.4 Basophils % 1.3 Nucleated Red Blood 0.0 Cells % Immature 0.120 H Granulocytes # Neutrophils # 4.3 Lymphocytes # 1.9 Monocytes # 0.9 Eosinophils # 0.2 Basophils # 0.1 Nucleated Red Blood 0.0 Cells # Sodium Level 141 Potassium Level 3.3 L Chloride Level 111 H Carbon Dioxide Level 21 Anion Gap 9 Blood Urea Nitrogen 29 H Creatinine 1.72 H Est Glomerular 29 L Filtrat Rate mL/min Glucose Level 162 Calcium Level 8.7 Phosphorus Level 2.8 Magnesium Level 2.1 Test 09/19/18 11:55 Bedside Glucose 212 Medications Medication Current Medications Miscellaneous Information (Pending Santyl Order For Wound Care) This patient garcia... PRN PRN XX WOUND CARE; Start 09/18/18 at 05:30 Acetaminophen (Tylenol Tab) 325 mg Q6 PRN GTB MILD PAIN(1-3) OR TEMP>38C Last administered on 09/19/18at 05:30; Admin Dose 325 MG; Start 09/18/18 at 06:00 Acetazolamide (Diamox) 250 mg Q12 GTB Last administered on 09/19/18 09:02; Admin Dose 250 MG; Start 09/18/18 at 09:00 Amlodipine Besylate (Norvasc) 5 mg Q12 GTB Last administered on 09/19/18 09:02; Admin Dose 5 MG; Start 09/18/18 at 09:00 Diphenhydramine HCl (Benadryl Liquid Cup) 25 mg Q8 PRN GTB ITCHING Last administered on 09/19/18 05:29; Admin Dose 25 MG; Start 09/18/18 at 06:00 Epoetin Jasmeet (Epogen (Esrd)) 7.15 units DAILY SC ; Start 09/18/18 at 09:00; Status UNV Furosemide (Lasix) 10 mg DAILY GTB Last administered on 09/19/18 09:01; Admin Dose 10 MG; Start 09/18/18 at 09:00 Metoprolol Tartrate (Lopressor) 25 mg BID PO Last administered on 09/19/18 09:02; Admin Dose 25 MG; Start 09/18/18 at 09:00 Metronidazole (Flagyl) 500 mg Q8 GTB Last administered on 09/19/18 14:13; Admin Dose 500 MG; Start 09/18/18 at 09:00 Potassium Chloride (Potassium Chloride Pwd/Soln) 20 meq DAILY PO Last administered on 09/19/18 09:02; Admin Dose 20 MEQ; Start 09/18/18 at 09:00 Trazodone HCl (Desyrel) 300 mg QHS PO Last administered on 09/18/18at 20:33; Admin Dose 300 MG; Start 09/18/18 at 21:00 Insulin Aspart (Novolog Insulin Pen) NOVOLOG *MILD* ALGORITHM WITH MEALS BEDTIME SC Last administered on 09/19/18 11:59; Admin Dose 2 UNIT; Start 09/18/18 at 07:55 Diagnostic Test (Pha) (Accu-Chek) 1 ea AC MEALS AND BEDTIME XX ; Start 09/18/18 at 07:25 Hydralazine HCl (Apresoline) 10 mg Q6H PRN IV SBP >170; Start 09/18/18 at 06:00 Hydralazine HCl (Apresoline) 100 mg Q8 GTB Last administered on 09/19/18at 14:14; Admin Dose 100 MG; Start 09/18/18 at 06:00 Nystatin (Nystatin Powder) 1 applic BID TOP Last administered on 09/19/18at 09:01; Admin Dose 1 APPLIC; Start 09/18/18 at 09:00 Miscellaneous Information 1 ea NOTE XX ; Start 09/18/18 at 06:30 Glucose (Glutose) 15 gm Q15M PRN PO DECREASED GLUCOSE; Start 09/18/18 at 06:30 Glucose (Glutose) 22.5 gm Q15M PRN PO DECREASED GLUCOSE; Start 09/18/18 at 06:30 Dextrose (D50w Syringe) 25 ml Q15M PRN IV DECREASED GLUCOSE; Start 09/18/18 at 06:30 Dextrose (D50w Syringe) 50 ml Q15M PRN IV DECREASED GLUCOSE; Start 09/18/18 at 06:30 Glucagon (Glucagen) 1 mg Q15M PRN IM DECREASED GLUCOSE; Start 09/18/18 at 06:30 Glucose (Glutose) 15 gm Q15M PRN BUCCAL DECREASED GLUCOSE; Start 09/18/18 at 06:30 Ondansetron HCl (Zofran Inj) 4 mg Q6H PRN IV NAUSEA AND/OR VOMITING; Start 09/18/18 at 06:30 Cefepime HCl 50 ml @ 100 mls/hr Q24H IVPB Last administered on 09/19/18at 10:12; Admin Dose 100 MLS/HR; Start 09/18/18 at 09:00 Miscellaneous Information (*Order Clarification Bulletin) EPOGEN ORDER...7.15 UNITS... Q8H XX ; Start 09/18/18 at 07:00 IRVIN STILL NP Sep 19, 2018 14:42
[2018-09-19] MEDS: traZODone 100 MG TAB PO SCH (20:29)
[2018-09-20] VITALS (13 sets, daily range): BP systolic 112–147; BP diastolic 51–64; PULSE 62–70; RESP 14–20
[2018-09-20] MEDS: INSULIN ASPART [NOVOLOG] 3 ML PEN SC SCH ×3 (01:59→09:58)
[2018-09-20] MEDS: ACCU-CHEK XX SCH (07:25)
[2018-09-20] MEDS: AMLODIPINE 5 MG TAB GTB SCH (09:11)
[2018-09-20] MEDS: FUROSEMIDE 40 MG/4 ML CUP GTB SCH (09:11)
[2018-09-20] MEDS: METOPROLOL 25 MG TAB PO SCH (09:11)
[2018-09-20] MEDS: POTASSIUM CHLORIDE 20 MEQ POWDER FOR ORAL SOLN PO SCH (09:12)
[2018-09-20] MEDS: NYSTATIN 30 GM POWDER BTL TOP SCH (09:12)
[2018-09-20] MEDS: ACETAZOLAMIDE 250 MG TAB GTB SCH (09:12)
[2018-09-20] MEDS: BALSAM PERU/CASTOR OIL 60 GM TUBE TOP SCH (09:12)
--- NOTE | 2018-09-20 11:07 | QN ---
Documentation Comment Pt seen and examined health unit coordinator vaginal bleeding noted UA neg see dc summary GERARDO PAVON MD Sep 20, 2018 11:07
--- NOTE | 2018-09-20 11:10 | PDOCDIS ---
Discharge Instructions DIAGNOSIS Discharge Diagnosis vaginal bleeding pt need to fu [facility] CONDITION [id number] Patient Condition: [id number] Fair HOME CARE INSTRUCTIONS: [id number] Special Diet: [id number] g tub efeeding FOLLOW UP/APPOINTMENTS Follow-up Plan fu pcp IN 1-2 WEEK FU Event Management Consultant onc in 1-2 weeks at [facility] for Post menopasusal bleeding GERARDO PAVON MD Sep 20, 2018 11:10
--- NOTE | 2018-09-20 15:25 | CONS ---
Assessment/Plan Assessment/Plan Hospital Course (Demo Recall) Patient is alert and looks comfortable, no vaginal bleeding, no fevers overnight Indwelling's: Tracheostomy, PEG Physical examination: This is a morbidly obese well-developed elderly woman who is awake in no distress. Head atraumatic normocephalic sclera nonicteric vehicle mucosa dry neck is supple tracheostomy present chest rise symmetrical breath sounds diminished bases heart: S1-S2 abdomen obese soft bowel sounds present extremities with trace edema. Patient has a open wound on the right forearm that does not look infected Assessment: 1. Status post vaginal bleeding 2. Chronic respiratory failure 3. Dysphasia 4. Morbid obesity 5. Hypertension Plan: Patient remains stable, okay discharge on oral doxycycline and Keflex for 7 days Consultation Date/Type/Reason Admit Date/Time Sep 18, 2018 at 02:01 Initial Consult Date 09/18/18 Type of Consult id Date/Time of Note DATE: 09/20/18 TIME: 15:24 Exam/Review of Systems Exam Vitals Vital Signs Date Temp Pulse Resp B/P (MAP) Pulse Ox O2 O2 Flow FiO2 Time Delivery Rate 09/20/18 98.3 70 20 112/51 100 Mechanical 11:55 (71) Ventilator Trach Collar 09/20/18 30 11:45 Intake and Output 09/19/18 09/19/18 09/20/18 1515:00 23:00 07:00 IntakeIntake Total 905 ml BalanceBalance 905 ml Results Result Diagram: 09/19/18 0632 09/20/18 0604 Results 24hrs Laboratory Tests Test 09/19/18 17:09 09/19/18 21:06 09/20/18 01:28 09/20/18 05:02 Bedside Glucose 213 216 203 168 Test 09/20/18 06:04 09/20/18 09:38 09/20/18 12:16 Sodium Level 142 Potassium Level 4.0 Chloride Level 111 H Carbon Dioxide Level 23 Anion Gap 8 Blood Urea Nitrogen 36 H Creatinine 1.71 H Est Glomerular 30 L Filtrat Rate mL/min Glucose Level 175 Calcium Level 8.8 Bedside Glucose 203 201 Medications Medication Current Medications Miscellaneous Information (Pending Santyl Order For Wound Care) This patient garcia... PRN PRN XX WOUND CARE; Start 09/18/18 at 05:30 Acetaminophen (Tylenol Tab) 325 mg Q6 PRN GTB MILD PAIN(1-3) OR TEMP>38C Last administered on 09/19/18 20:30; Admin Dose 325 MG; Start 09/18/18 at 06:00 Acetazolamide (Diamox) 250 mg Q12 GTB Last administered on 09/20/18 09:12; Admin Dose 250 MG; Start 09/18/18 at 09:00 Amlodipine Besylate (Norvasc) 5 mg Q12 GTB Last administered on 09/20/18 09:11; Admin Dose 5 MG; Start 09/18/18 at 09:00 Diphenhydramine HCl (Benadryl Liquid Cup) 25 mg Q8 PRN GTB ITCHING Last administered on 09/19/18 20:28; Admin Dose 25 MG; Start 09/18/18 at 06:00 Furosemide (Lasix) 10 mg DAILY GTB Last administered on 09/20/18 09:11; Admin Dose 10 MG; Start 09/18/18 at 09:00 Metoprolol Tartrate (Lopressor) 25 mg BID PO Last administered on 09/20/18 09:11; Admin Dose 25 MG; Start 09/18/18 at 09:00 Potassium Chloride (Potassium Chloride Pwd/Soln) 20 meq DAILY PO Last administered on 09/20/18 09:12; Admin Dose 20 MEQ; Start 09/18/18 at 09:00 Trazodone HCl (Desyrel) 300 mg QHS PO Last administered on 09/19/18 20:29; Admin Dose 300 MG; Start 09/18/18 at 21:00 Hydralazine HCl (Apresoline) 10 mg Q6H PRN IV SBP >170; Start 09/18/18 at 06:00 Hydralazine HCl (Apresoline) 100 mg Q8 GTB Last administered on 09/20/18 13:59; Admin Dose 100 MG; Start 09/18/18 at 06:00 Nystatin (Nystatin Powder) 1 applic BID TOP Last administered on 09/20/18 09:12; Admin Dose 1 APPLIC; Start 09/18/18 at 09:00 Miscellaneous Information 1 ea NOTE XX ; Start 09/18/18 at 06:30 Glucose (Glutose) 15 gm Q15M PRN PO DECREASED GLUCOSE; Start 09/18/18 at 06:30 Glucose (Glutose) 22.5 gm Q15M PRN PO DECREASED GLUCOSE; Start 09/18/18 at 06:30 Dextrose (D50w Syringe) 25 ml Q15M PRN IV DECREASED GLUCOSE; Start 09/18/18 at 06:30 Dextrose (D50w Syringe) 50 ml Q15M PRN IV DECREASED GLUCOSE; Start 09/18/18 at 06:30 Glucagon (Glucagen) 1 mg Q15M PRN IM DECREASED GLUCOSE; Start 09/18/18 at 06:30 Glucose (Glutose) 15 gm Q15M PRN BUCCAL DECREASED GLUCOSE; Start 09/18/18 at 06:30 Ondansetron HCl (Zofran Inj) 4 mg Q6H PRN IV NAUSEA AND/OR VOMITING; Start 09/18/18 at 06:30 Insulin Aspart (Novolog Insulin Pen) NOVOLOG *MILD* ALGORI... Q6 SC ; Start 09/20/18 at 18:00 IRVIN STILL NP Sep 20, 2018 15:25
[2018-09-20] MEDS ORDERED: FLUCONAZOLE 100 MG TAB PO SCH (15:30)
[2018-09-20] MEDS ORDERED: INSULIN ASPART [NOVOLOG] 3 ML PEN SC SCH (18:00)
--- NOTE | 2018-09-21 04:29 | DS ---
DATE OF ADMISSION: 09/18/2018 DATE OF DISCHARGE: 09/20/2018 HISTORY OF PRESENTING ILLNESS AND HOSPITAL COURSE: This is a 68-year-old female with past medical hi story of chronic respiratory failure on ventilator, history of aspiration pneumonia, COPD, morbid obe sity, history of UTI, hypertension, admitted to [facility] secondary to ongoing vaginal ble eding. The patient was transferred to [facility]. She was thought to have thickened bleeding t here secondary to postmenopausal. The patient there had no WASHER OFF service in [facility]. [facility] was contacted. Discussion with the case finishing machine adjuster. The patient was supposed to go to and C. Did not work out. Referral was made. The patient came back again to [facility] and was transferre to [facility] due to unavailability of the bed. The patient was noted to have vaginal bleedin g there and was transferred here for further management. On admission, vital signs were stable. Hemoglobin was checked. It was stable - 10.6, 10.4, 10.5. T he patient also had a pelvic ultrasound that showed grossly normal appearance of uterus. Endometrial echo complex is 8 mm. Gynecology consultation was obtained then with Dr. Barragan that showed bart perez had an endometrial lining of 8 mm, increased for a postmenopausal woman. Needed to establish the s ource of bleeding, vagina or from bladder. However, UA was done that was negative. At this period o f time, according to her, an endometrial biopsy should be a consideration if vaginal bleeding persist s to rule out endometrial carcinoma. However, the WASHER OFF service believes that the patient should benef it from transfer to a tertiary center which may be better equipped to take care of this patient becau se of her comorbid conditions. The patient was also seen by ID and all other antibiotics were stoppe d -- Flagyl, cefepime, Diflucan. The patient was started on doxycycline and Keflex for the right for earm ulcer. Currently, patient is better and is stable to be discharged back to the rehab. Spoke to the brother who wants the patient to be transferred back to [facility] and sent to [facility], and the patient will be discharged there. FINAL DISCHARGE DIAGNOSES: 1. Vaginal bleeding but with a thickened endometrial lining. Hemoglobin has been stable. The jon nt needs to follow with the gyne-oncologist as an outpatient at a tertiary center. 2. Right forearm ulcer, started on doxycycline and Keflex. 3. Hypokalemia. 4. History of multiple uterine infections. 5. History of chronic respiratory failure, status post tracheostomy. 6. Dysphagia, status post G-tube. 7. Hypertension. 8. Morbid obesity. 9. History of chronic kidney disease. DISCHARGE CONDITION: Stable. DISCHARGE DIET: G-tube feeding. DISCHARGE MEDICATIONS: Continue with: 1. Insulin. 2. Trazodone. 3. Diamox 250 q.12. 4. Norvasc 5 q.12. 5. Lasix 10. 6. Metoprolol 25 b.i.d. 7. KCl 20. 8. Nystatin. 9. Hydralazine 100 q.8. 10. Benadryl p.r.n. 11. Doxycycline 100 b.i.d. for 7 days. 12. Keflex 500 b.i.d. for 7 days. Dictated By: GERARDO TELLO/REJI Conf#: [id number] DID#: [id number] CC: ADAM CARDENAS MD;*End*
== END 2018-09-20 15:15 | DRG 760 ==
LOC: E/R 00:09 → TEL 02:01
PROVIDERS: ADMIT Internal Medicine Nephrology; ATTEND Internal Medicine Nephrology
DX: N95.0 Postmenopausal bleeding (principal); Z99.11 Dependence on respirator [ventilator] status; Z68.44 Body mass index [BMI] 60.0-69.9, adult; J96.10 Chronic respiratory failure, unspecified whether with hypoxia or hypercapnia; Z93.0 Tracheostomy status; R13.10 Dysphagia, unspecified; E11.22 Type 2 diabetes mellitus with diabetic chronic kidney disease; E66.01 Morbid (severe) obesity due to excess calories; Z93.1 Gastrostomy status; L98.499 Non-pressure chronic ulcer of skin of other sites with unspecified severity; J44.9 Chronic obstructive pulmonary disease, unspecified; I12.9 Hypertensive chronic kidney disease with stage 1 through stage 4 chronic kidney disease, or unspecified chronic kidney disease; N18.9 Chronic kidney disease, unspecified; E87.6 Hypokalemia; Z79.4 Long term (current) use of insulin; Z87.440 Personal history of urinary (tract) infections
CPT/HCPCS: 36600; 71045; 76830; 76856; 80048; 80053; 81001; 82803; 82962; 83735; 84100; 85025; 85610; 85730; 86900; 86901; 87070; 87081; 87086; 94002; 94003; A4310; J0692; J1815; J3480; J7030